=== PATIENT | female | born 1930 | race Caucasian/White ===

== ENCOUNTER → 2016-07-04 | Outpatient (CLI) | payer OTHER ==
[~2016-07-04] MED LIST: ACTONEL PO; ANTIBIOTIC; BACTRIM DS TAB1 EACH PO; BENTYL 10 MG CA10 MG PO; BIOFREEZE118 ML TP; CALCIUM 600 +1 EAC1 PO; COLACE100 MG PO; CYMBALTA30 MG PO; CYMBALTA60 MG PO; DIAZEPAM 10 MG10 M1 PO; DIAZEPAM 5 MG5 M1 PO; DURAGESIC25 MCG/HR TP; ENSURE COMPLET237 ML PO; ENSURE113 GM PO; ESTRACE1 MG PO; FENTANYL PA50 MCG/HR TRANSDERM; FLEXERIL PO; GLUCOSAMINE &1 EACH PO; HYDROCODON-ACE1 EAC8 PO; HYDROCODONE-AP1 EA11 PO; HYDROCODONE-AP1 EAC2 PO; HYDROCODONE-AP1 EAC6 PO; HYDROCODONE-APA1 TA1 PO; HYLANDS PO; IBUPROFEN 800800 M1 PO; ICY HOT CREAM35.4 GM TP; IRON325 PO; KEFLEX500 M1 PO; LEVOTHYROXIN0.075 MG PO; LEVOTHYROXIN0.088 MG PO; LEVOTHYROXIN0.125 M1 PO; LORTAB 5 MG/5001 TA1 PO; LORTAB 5-500 T1 EAC1 PO; LOVENOX SQ; MACROBID 100 M100 M1 PO; METHADONE HCL5 MG PO; MILK OF MA2400 MG/10 PO; MIRALAX17 GM PO; MULTI VITAMIN1 EACH PO; NORCO 10-325 T1 EACH PO; NORVASC 5 MG TAB5 MG PO; ROVIN-CF OF TA1 EACH PO; SENNA LAXATIVE8.6 MG PO; SENOKOT-S1 TA1 PO; SYNTHROID25 MCG PO; TYLENOL325 MG PO; UNASYN 3 GM VIAL3 G1 IV; VESICARE10 M1 PO; VITAMIN D3 PO; [UNRECOGNIZED DRUG - OTHER] PO
--- NOTE | ~2016-07-04 | HPC ---
[facility] [address] [place] [address] PAIN MANAGEMENT CONSULTATION Name: FRANKO ORDONEZ Room #: REG [facility] M.R.#: [id number] Admission: 07/04/16 Attend Phys: Damien Carrera MD Discharge: Date of : 32 Report #: [id number] THIS REPORT FOR: //name// CC: Viktor Carrera DATE OF REGISTRATION: 06/24/2016. REASON FOR VISIT: Followup visit for low back pain and bilateral lower extremity pain. HISTORY OF PRESENT ILLNESS: I am seeing the patient in followup. She was last seen 2 months ago by my partner, Dr. Wilian Robles in my absence. She is here today for renewal of her medication. [facility]. She is there basically for respite care. Her is undergoing treatment for cancer and is unable to provide the day-to-day care that she requires. She is doing okay there. The two of them had a fight today because he reports that they have been giving her 2 beers with lunch and 2 beers with dinner!. He is not sure she should be drinking the alcohol, but she certainly enjoys it. She is nonweightbearing. She is in a wheelchair all day long. She has not had any falls from her wheelchair. She has not had any appropriate behaviors. She certainly does not drive or put anyone else at harm. We talked about the use of alcohol philosophically for an 86-year-old who is essentially debilitated in a wheelchair. We talked about the interaction between her medications and alcohol, which at one time was used as a medication. From a pharmacologic standpoint, alcohol will simply potentiate all of her other medications and make her sleepier. She enjoys that. He is not so sure. I think that she should be cautious with the medication, but certainly, if she enjoys drinking a little bit of beer while she is at the nursing facility, I am not inclined to force her off it at this stage. PHYSICAL EXAMINATION: She is bright and alert. She is in a wheelchair. Her legs are in chronic flexion with muscle wasting. She has multiple tender spots, most predominantly across her low back and myofascial points diffusely through her back, torso, legs and hips. IMPRESSION: 1. Chronic intractable back pain with radiculopathy. 2. Chronic debility. 3. Osteoarthritis, status post knee replacement. 4. Management of high risk medication. PLAN: [facility] [address] [place] [address] PAIN MANAGEMENT CONSULTATION Name: FRANKO ORDONEZ Room #: REG [facility].#: [id number] Admission: 07/04/16 Attend Phys: Damien Carrera MD Discharge: Date of : 32 Report #: [id number] 1. We will continue her on the low dose methadone 2.5 mg t.i.d. for a total of 7.5 mg. She tolerates it well with very few side effects. 2. I renewed [place] 7.5/325, which she can take for breakthrough pain if necessary for severe pain. 3. Follow up in the pain clinic in 3 months. 4. If she returns home, I have stressed the importance of safeguarding all medications under terms of our agreement. By: [id number] Damien Carrera MD /nt
[2016-07-04 11:14] VITALS: BP 158/88
== END | disposition home or self-care (01) ==
LOC: PAIN 07:08
DX: M54.16 Radiculopathy, lumbar region (principal); G89.29 Other chronic pain; R53.81 Other malaise; M17.9 Osteoarthritis of knee, unspecified; Z96.659 Presence of unspecified artificial knee joint

== ENCOUNTER 2016-08-21 18:18 | Emergency (ER) | payer OTHER ==
[~2016-08-21] VITALS: Ht 165.1 cm; Wt 39.9 kg
[~2016-08-21 18:18] MED LIST changes: +REGLAN 5 MG TAB5 MG PO
[2016-08-21] MEDS ORDERED: METOCLOPRAMIDE 55 M1 GT (19:13)
[2016-08-21] MEDS ORDERED: HYDROCODONE-APA1 TA1 PO (19:13)
[2016-08-21] MEDS ORDERED: VALIUM5 MG PO (19:13)
[2016-08-21] MEDS ORDERED: CYMBALTA30 MG PO (19:14)
[2016-08-21 20:08] LABS: URINE BILIRUBIN 1+ (Negative); URINE BLOOD 3+ (Negative); URINE COLOR YELLOW; URINE GLUCOSE-RANDOM* NEGATIVE (Negative); URINE KETONES NEGATIVE (Negative); URINE LEUKOCYTES-REFLEX 2+ (Negative); URINE PROTEIN (DIPSTICK) 3+ (Negative)
[2016-08-21 20:12] LABS: ICTOTEST (BILI CONFIRMATORY) Positive (Negative)
[2016-08-21 20:17] LABS: CASTS None Seen /LPF (None Seen); CRYSTALS None Seen /LPF (None Seen); SQUAMOUS 0-3 Few /LPF (0-3); URINE RBC >20 Many /HPF (0-2); URINE WBC-REFLEX >25 Many /HPF (0-5)
[2016-08-21] MEDS ORDERED: KEFLEX500 MG PO (20:32)
[2016-08-21 20:35] VITALS: BP 128/74
== END 2016-08-21 20:35 | disposition home or self-care (01) ==
LOC: ER 18:18
PROVIDERS: Emergency Medicine
DX: N39.0 Urinary tract infection, site not specified (principal); T83.018A Breakdown (mechanical) of other urinary catheter, initial encounter; M19.90 Unspecified osteoarthritis, unspecified site; G89.29 Other chronic pain; M54.9 Dorsalgia, unspecified; E03.9 Hypothyroidism, unspecified; Z96.651 Presence of right artificial knee joint; Z90.49 Acquired absence of other specified parts of digestive tract; Z90.710 Acquired absence of both cervix and uterus; Z88.6 Allergy status to analgesic agent

== ENCOUNTER 2016-09-11 22:17 | Emergency (ER) | payer OTHER ==
[~2016-09-11] VITALS: Ht 170.2 cm; Wt 68.0 kg
[~2016-09-11 22:17] MED LIST changes: +KEFLEX500 MG PO; +METOCLOPRAMIDE 55 M1 GT; +VALIUM5 MG PO
[2016-09-11 22:34] LABS: URINE BILIRUBIN NEGATIVE (Negative); URINE BLOOD 3+ (Negative); URINE COLOR YELLOW; URINE GLUCOSE-RANDOM* NEGATIVE (Negative); URINE KETONES NEGATIVE (Negative); URINE NITRITE POSITIVE (Negative); URINE PROTEIN (DIPSTICK) NEGATIVE (Negative); URINE UROBILINOGEN 0.2 E.U./dl (0.2-1.0)
[2016-09-11] MEDS ORDERED: KEFLEX500 MG PO (22:36)
[2016-09-11 22:48] LABS: BACTERIA >30 Many /HPF (None Seen); CASTS None Seen /LPF (None Seen); CRYSTALS None Seen /LPF (None Seen); SQUAMOUS 0-3 Few /LPF (0-3); URINE RBC 3-10 Few /HPF (0-2); URINE WBC >25 Many /HPF (0-5)
[2016-09-12 00:52] VITALS: BP 147/81
== END 2016-09-12 00:56 | disposition home or self-care (01) ==
LOC: ER 22:17
PROVIDERS: Nurse Practitioner
DX: T83.018A Breakdown (mechanical) of other urinary catheter, initial encounter (principal); M19.90 Unspecified osteoarthritis, unspecified site; E03.9 Hypothyroidism, unspecified; G89.29 Other chronic pain; M54.9 Dorsalgia, unspecified; Z96.651 Presence of right artificial knee joint; Z90.49 Acquired absence of other specified parts of digestive tract; Z90.710 Acquired absence of both cervix and uterus; Z85.89 Personal history of malignant neoplasm of other organs and systems; Z88.6 Allergy status to analgesic agent; X58.XXXA Exposure to other specified factors, initial encounter; Y93.89 Activity, other specified; Y92.89 Other specified places as the place of occurrence of the external cause; Y99.8 Other external cause status

== ENCOUNTER → 2016-10-03 | Outpatient (CLI) | payer OTHER ==
[2016-10-03 11:10] VITALS: BP 100/61
== END | disposition home or self-care (01) ==
LOC: PAIN 06:48
DX: M54.10 Radiculopathy, site unspecified (principal); G89.29 Other chronic pain; M17.0 Bilateral primary osteoarthritis of knee

== ENCOUNTER → 2016-12-30 | Outpatient (CLI) | payer OTHER ==
--- NOTE | ~2016-12-30 | HPC ---
[facility] [address] [place] [address] PAIN MANAGEMENT CONSULTATION Name: FRANKO ORDONEZ Room #: REG [facility] M.R.#: [id number] Admission: 12/30/16 Attend Phys: Damien Carrera MD Discharge: Date of : 32 Report #: [id number] THIS REPORT FOR: //name// CC: Viktor Carrera DATE OF SERVICE: 12/30/2016 Followup visit for management of opioid medication for intractable pain. SUBJECTIVE: The patient is here today with her caregiver and her . I have continued to provide medications for her due to severe back pain with radiculopathy, osteoarthritis and chronic debility. She has been a longstanding patient of our clinic. Her opioid agreement dating back to before 2014. Had no drug aberrant behaviors, no lost prescriptions. She is grateful for the medication. It provides palliative role in her care. She is nonweightbearing. She and her continue live in their house with benefits of caregiver who comes in 4 hours during the day and a second caregiver that comes at night to help with bedding and hygiene. They use [employer]. There have been no issues. She reports her pain medication helps by quite a bit. She says without it, her pain is quite severe, up over a 9/10, activated by weather and rough handling. CURRENT MEDICINES: Methadone 2.5 mg 3 times daily; hydrocodone 7.5 t.i.d.; diazepam, which is longstanding use 2.5 mg at bedtime, well tolerated; Cymbalta 30 mg daily; levothyroxine and Colace. We have discussed the issues associated with combination of benzodiazepines and opioids, but she is well acclimated to these medicines and shows no addictive issues or overmedication issues during her visits here. ALLERGIES: IBUPROFEN AND OTHER NONSTEROIDAL ANTI-INFLAMMATORY DRUGS. PHYSICAL EXAMINATION: GENERAL: She is bright-eyed, pleasant, outgoing and alert. CHEST: Clear. CARDIAC: Rhythm is regular. VITAL SIGNS: Her blood pressure is 101/62, heart rate 82, respirations 20. EXTREMITIES: She has her legs flexed in the seated position and cannot straighten them. IMPRESSION: 1. Chronic intractable back pain with radiculopathy. 2. Osteoarthritis. 3. Debility. [address] [address] PAIN MANAGEMENT CONSULTATION Name: FRANKO ORDONEZ Room #: REG [facility] Clara#: [id number] Admission: 12/30/16 Attend Phys: Damien Carrera MD Discharge: Date of : 32 Report #: [id number] 4. Management of high risk medications under an opioid agreement. Responsibilities were reviewed and she was given her medication prescriptions for 3 months including low-dose methadone at 2.5 t.i.d. and [place] 7.5 mg twice a day for breakthrough pain. Followup visit is scheduled in our pain clinic in 3 months. By: [id number] MD zina Gonzalez
[2016-12-30 11:04] VITALS: BP 101/62
== END | disposition home or self-care (01) ==
LOC: PAIN 06:58
DX: M54.10 Radiculopathy, site unspecified (principal); M19.90 Unspecified osteoarthritis, unspecified site; Z79.899 Other long term (current) drug therapy

== ENCOUNTER 2017-08-03 19:55 | Emergency (ER) | payer OTHER ==
[~2017-08-03] VITALS: Ht 170.2 cm; Wt 66.2 kg
[~2017-08-03 19:55] MED LIST changes: +AMIODARONE HCL100 MG PO; +CARDIZEM CD240 MG PO; -LEVOTHYROXIN0.075 MG PO; +MSL20MG/ML PO; +SYNTHROID100 MC1 PO
[2017-08-04 00:21] VITALS: BP 101/69
== END 2017-08-03 23:05 | disposition home or self-care (01) ==
LOC: ER 19:55
DX: Z46.6 Encounter for fitting and adjustment of urinary device (principal); M19.90 Unspecified osteoarthritis, unspecified site; E03.9 Hypothyroidism, unspecified; G89.29 Other chronic pain; M54.9 Dorsalgia, unspecified; Z96.651 Presence of right artificial knee joint; Z90.49 Acquired absence of other specified parts of digestive tract; Z90.710 Acquired absence of both cervix and uterus; Z85.41 Personal history of malignant neoplasm of cervix uteri; Z88.6 Allergy status to analgesic agent